=== PATIENT | male | born 2005 | race Caucasian/White ===

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

== ENCOUNTER → 2024-05-30 | Outpatient (CLI) | payer OTHER ==
[2024-05-30 14:25] LABS: HEMATOCRIT 43.8 % (42.0-52.0); HEMOGLOBIN 14.2 g/dl (13.5-17.5); MEAN CORPUSCULAR HEMOGLOBIN 29.6 pg (27.0-33.0); MEAN CORPUSCULAR HGB CONC 32.4 g/dl (32.0-36.5); MEAN CORPUSCULAR VOLUME 91.3 fl (80.0-96.0); PLATELET COUNT, AUTOMATED 288 10^3/uL (150-450); WHITE BLOOD COUNT 5.6 10^3/uL (4.0-10.0)
[2024-05-30 14:32] LABS: ERYTHROCYTE SEDIMENTATION RATE 5 mm/hr (0-15)
[2024-05-30 14:55] LABS: C REACTIVE PROTEIN QUANTITATIV < 0.50 MG/DL (<1.0)
[2024-05-30 14:57] LABS: HEPATITIS B SURFACE ANTIBODY NEGATIVE (POSITIVE); TOTAL 25(OH) VITAMIN D 8.2 NG/ML (20.0-100.0)
[2024-05-30 15:09] LABS: HEPATITIS B SURFACE ANTIGEN NEGATIVE (NEGATIVE)
[2024-05-30 15:30] LABS: HEPATITIS B CORE ANTIBODY IGM NEGATIVE (NEGATIVE)
[2024-05-30 15:42] LABS: ALBUMIN 3.9 G/DL (3.2-5.2); ALKALINE PHOSPHATASE 100 U/L (40-129); ALT/SGPT 12 U/L (7.0-40); AST/SGOT 9 U/L (<34); BILIRUBIN,DIRECT 0.2 MG/DL (<0.4); BILIRUBIN,TOTAL 0.5 MG/DL (0.3-1.2); BLOOD UREA NITROGEN 8 MG/DL (9-23); CALCIUM LEVEL 8.6 MG/DL (8.5-10.1); CARBON DIOXIDE LEVEL 28 MMOL/L (20-31); CHLORIDE LEVEL 107 MMOL/L (98-107); CREATININE FOR GFR 0.89 MG/DL (0.70-1.30); GLOMERULAR FILTRATION RATE > 90.0 (>60); GLUCOSE, FASTING 81 MG/DL (60-100); POTASSIUM SERUM 4.3 MMOL/L (3.5-5.1); SODIUM LEVEL 143 MMOL/L (136-145); TOTAL PROTEIN 7.1 G/DL (5.7-8.2)
[2024-06-01 12:17] LABS: QuantiFERON-TB Gold Plus NEGATIVE (NEGATIVE)
== END ==
LOC: M WUC 11:44
DX: K50.80 Crohn's disease of both small and large intestine without complications (principal); E55.9 Vitamin D deficiency, unspecified